=== PATIENT | female | born 2000 | race Caucasian/White ===

== ENCOUNTER → 2019-08-21 | Outpatient (CLI) | payer BC | LOC: LAB FS 11:13 | PROVIDERS: ATTEND Family Medicine | DX: Z36.87 Encounter for antenatal screening for uncertain dates (principal) | CPT/HCPCS: 36415; 84702 ==

== ENCOUNTER 2019-09-01 07:46 | Day surgery (SDC) | payer BC ==
[2019-09-01] VITALS (9 sets, daily range): BP systolic 100–118; BP diastolic 53–73
[~2019-09-01] VITALS: Ht 157.5 cm; Wt 58.1 kg
--- NOTE | 2019-09-01 08:24 | Progress Note-Pre Operative ---
Pre-Operative Progress Note H&P Reviewed The H&P was reviewed, patient examined and no changes noted. Date Seen by Provider: September 01, 2019 Time Seen by Provider: 08:23 Date H&P Reviewed: September 01, 2019 Time H&P Reviewed: 08:23 Pre-Operative Diagnosis: Missed KARTHIK LOU DO September 01, 2019 08:24
[2019-09-01] MEDS ORDERED: ONDANSETRON 4 MG/2 ML (SDV) Z0FRAN ONE (08:25)
[2019-09-01] MEDS ORDERED: SEVOFLURANE (ULTANE) 15 ML INHAL SOLN ONE (08:25)
[2019-09-01] MEDS ORDERED: DEXAMETHASONE 10 MG/ML (DECADRON) 1 ML VIAL ONE (08:25)
[2019-09-01] MEDS ORDERED: MIDAZOLAM 2 MG/2 ML (VERSED) VIAL ONE (08:25)
[2019-09-01] MEDS ORDERED: proPOfol 200 MG/20 ML (DIPRIVAN) VIAL IV ONE (08:25)
[2019-09-01] MEDS ORDERED: LIDOCAINE PF 2% 5 ML (XYLOCAINE) VIAL ONE (08:25)
[2019-09-01] MEDS ORDERED: fentaNYL INJECTION 100 MCG/2 ML AMP ONE (08:25)
[2019-09-01] MEDS ORDERED: D5 LR IV SOLUTION 1,000 ML IV SCH (08:26)
[2019-09-01] MEDS ORDERED: LACTATED RINGERS 1,000 ML IV PRN (08:27)
[2019-09-01] MEDS ORDERED: HYDR-4226 PO (08:29)
[2019-09-01] MEDS ORDERED: IBUP-1773 PO (08:29)
[2019-09-01] MEDS ORDERED: HYDROcodone/APAP 5 MG/325 MG (LORTAB) TAB PO PRN (08:30)
[2019-09-01] MEDS ORDERED: ONDANSETRON 4 MG/2 ML (SDV) Z0FRAN IVP PRN ×2 (08:30→09:30)
[2019-09-01] MEDS ORDERED: KETOROLAC 30 MG/ML VIAL IVP ONE (08:30)
--- NOTE | 2019-09-01 08:30 | Discharge Inst-Women's Service ---
Discharge Inst-Women's Serv Depart Medication/Instructions New, Converted or Re-Newed RX: RX on Chart Problems Reviewed?: Yes Consults/Follow Up Additional Follow Up: Yes Orders/Referrals Dr. Fernandez in 2-3 weeks Activity Activity: Activity as Tolerated Driving Instructions: You May Drive (do not drive for 6 hrs after taking hydrocodone) NO SMOKING: NO SMOKING Nothing Inside Vagina: No Douching, No [place], No Tampons Diet Discharge Diet: No Restrictions Symptoms to Report to : Bleeding Excessive, Pain Increased, Fever Over 101 Degrees F, Vaginal Bleeding Increase, Questions/Concerns For Any Problems or Questions: Contact Your Physician KARTHIK FERNANDEZ DO September 01, 2019 08:30
[2019-09-01 08:37] LABS: BASOPHILS % (AUTO) 1 % (0-10); EOSINOPHILS # (AUTO) 0.1 10^3/uL (0.0-0.3); EOSINOPHILS % (AUTO) 1 % (0-10); HEMATOCRIT 34 % (35-52); HEMOGLOBIN 12.1 G/DL (11.5-16.0); LYMPHOCYTES # (AUTO) 1.5 X 10^3 (1.0-4.0); LYMPHOCYTES % (AUTO) 25 % (12-44); MEAN CORPUSCULAR HEMOGLOBIN 30 PG (25-34); MEAN CORPUSCULAR HGB CONC 36 G/DL (32-36); MEAN CORPUSCULAR VOLUME 84 FL (80-99); MEAN PLATELET VOLUME 12.3 FL (7.4-10.4); MONOCYTES # (AUTO) 0.4 X 10^3 (0.0-1.0); MONOCYTES % (AUTO) 7 % (0-12); NEUTROPHILS # (AUTO) 3.8 X 10^3 (1.8-7.8); NEUTROPHILS % (AUTO) 66 % (42-75); PLATELET COUNT 185 10^3/uL (130-400); RED CELL DISTRIBUTION WIDTH 12.7 % (10.0-14.5); WHITE BLOOD COUNT 5.8 10^3/uL (4.3-11.0)
--- OUTSIDE RECORDS SUMMARY | 2019-09-01 08:44 | XMS REPORT | Continuity of Care Document ---
Author Organization Unknown Address Unknown Phone Unavailable Allergies There is no data. Medications There is no data. Problems Date Dx Coded Attending Type Code Diagnosis Diagnosed By 08/23/2019 BURT RODRIGES, STEPHANIE Brown Ot Z36.87 ENCOUNTER FOR SCREENING FOR UN Procedures There is no data. Results There is no data. Encounters ACCT No. Visit Date/Time Discharge Status Pt. Type Provider Facility Loc./Unit Complaint [id number] 08/21/2019 11:00:00 08/21/2019 23:59: 59 CLS Outpatient SELF, SHABANA Beard [facility] [id number] 08/21/2019 11:13:00 020 23:59:59 CLS Outpatient STEPHANIE DALLAS MD [facility] LAB FS UNSURE OF LAST MENSTRUA L PERIOD REASON FOR US S [id number] 09/01/2019 08:25:00 Document Registration
[2019-09-01] MEDS ORDERED: MIDAZOLAM 2 MG/2 ML (VERSED) VIAL IVP ONE (08:45)
[2019-09-01] MEDS ORDERED: morphine INJ 10 MG/ML 1ML (SYR OR VIAL) IVP ONE (09:30)
--- NOTE | 2019-09-01 10:06 | Anesthesia-General Post-Op ---
General Patient Condition Mental Status/LOC: Same as Preop Cardiovascular: Satisfactory Nausea/Vomiting: Absent Respiratory: Satisfactory Pain: Controlled Complications: Absent Post Op Complications Complications None Follow Up Care/Instructions Patient Instructions None needed. Anesthesia/Patient Condition Patient Condition Patient is doing well, no complaints, stable vital signs, no apparent adverse anesthesia problems. DEE ANAND DO September 01, 2019 10:06
--- NOTE | 2019-09-01 13:48 | OPERATIVE REPORT ---
DATE OF SERVICE: PREOPERATIVE DIAGNOSIS: A 19-year-old female with missed . POSTOPERATIVE DIAGNOSIS: A 19-year-old female with missed . PROCEDURE: Suction D and C. SURGEON: Karthik Fernandez DO ANESTHESIA: LMA general. ESTIMATED BLOOD LOSS: 300 mL. URINE OUTPUT: 150 mL clear drained at the start of the procedure. FLUIDS: 1200 mL lactated Ringer's solution. FINDINGS: A grossly normal appearing external female genitalia. Normal-appearing vagina and cervix slightly enlarged uterus approximately 8-week size. SPECIMEN SENT: Products of conception. INDICATIONS FOR PROCEDURE: This 19-year-old female is a patient that was consulted to me from Dr. Morfin in [place] for a missed AB, finding of a blighted ovum on ultrasound. Her beta-hCG levels corresponded with missed AB as well as they had been falling. They were 30,000 two days ago and recheck on showed them to be in the 20,000. I discussed with the patient this finding and the assurance that this was a nonviable . Due to the hCG falling, I discussed with her proceeding with suction D and C versus awaiting things out at home. She wishes to proceed with a more definitive procedure as she has concerns of going to the Emergency Department with bleeding and pain. Risks of the procedure was discussed with the patient in detail and after all of her questions were answered, consent was obtained in the preoperative area and the patient was taken to the operating room. OPERATIVE REPORT IN DETAIL: Once in the operating room, anesthesia was found to be adequate. She was placed in dorsal lithotomy position, prepped and draped in normal sterile fashion. Timeout was performed. A straight catheterization was performed as well. A weighted speculum inserted to the patient's vagina after a bimanual examination was performed. A right-angle retractor was used to visualize the cervix, which was grasped at 12 o'clock position using a long Allis clamp. I then gently sound the uterine cavity depth was found to be 8 cm. I selected 8 curved rigid [place] suction tip and dilated the cervix using Hegar dilators to 9 mm dilatation, at which point I advanced the suction tip with the Richmond suction device activated and a suction pressure of 75 mmHg achieved, I methodically clear the endometrium of all products of conception on several different passes using suction. I then performed a gentle curettage using a gentle small endometrial curette followed by a final pass with the suction curette, after which there was little bleeding noted from the cervix. All other instruments were removed from the patient's vagina. The patient tolerated the procedure well and was taken to recovery area in stable condition. Lap and sponge counts were correct at the end of the procedure. Instrument count was correct as well. Job ID: [id number] DocumentID: [id number] Dictated Date: 09/01/2019 09:23:30 Applications Support Lead Date: 09/01/2019 13:47:30 Dictated By: KARTHIK FERNANDEZ DO
== END 2019-09-01 10:55 | disposition home or self-care (01) ==
LOC: SDC 07:46
PROVIDERS: ATTEND Obstetrics & Gynecology
DX: O02.1 Missed abortion (principal); G43.909 Migraine, unspecified, not intractable, without status migrainosus; Z83.3 Family history of diabetes mellitus; Z82.49 Family history of ischemic heart disease and other diseases of the circulatory system
CPT/HCPCS: 36415; 85025; 86850; 86900; 86901; 87081; 87635

== ENCOUNTER 2020-03-25 14:52 | Emergency (ER) | payer BC ==
[~2020-03-25] VITALS: Ht 157.4 cm; Wt 59.0 kg
[~2020-03-25 14:52] MED LIST: HYDR-4226 PO; IBUP-1773 PO
[2020-03-25 15:07] VITALS: BP 109/76
[2020-03-25 15:21] LABS: BILIRUBIN,URINE 3+ (NEGATIVE); CLARITY,URINE TURBID; COLOR,URINE RED; GLUCOSE, URINE (UA) TRACE (NEGATIVE); KETONES,URINE 1+ (NEGATIVE); NITRITE,URINE POSITIVE (NEGATIVE); PH,URINE 7.5 (5-9); PROTEIN,URINE 3+ (NEGATIVE)
[2020-03-25 15:22] LABS: BACTERIA,URINE FEW /HPF; LEUKOCYTE ESTERASE ,URINE 3+ (NEGATIVE); RBC,URINE TNTC /HPF; RENAL EPITHELIAL CELLS,URINE 0-2 /HPF; WBC,URINE >100 /HPF
--- NOTE | 2020-03-25 15:22 | ED GU-Female ---
General Chief Complaint: - Urinary Stated Complaint: URINARY FREQUENCY Nursing Triage Note: Patient presents to the ED with c/o of urinary frequency and spasming. Patient reports that her symptoms began yesterday evening and have not subsided despite using AZO and drinking cranberry juice. Nursing Sepsis Screen: No Definite Risk History of Present Illness Date Seen by Provider: Mar 25, 2020 Time Seen by Provider: 15:21 Initial Comments Patient presenting to the emergency department for evaluation of dysuria and frequency that has been going on since yesterday and she says she has no abdominal pain fevers chills nausea vomiting back pain or other systemic symptoms. She went to the restroom approximately 4 times in the first 20 minutes of her being here. She denies any vaginal discharge. She is in no obvious distress with normal vital signs. Allergies and Home Medications Allergies Coded Allergies: No Known Drug Allergies (Unverified , 09/01/19) Home Medications Hydrocodone/Acetaminophen 1 Each Tablet, 1 TAB PO Q4-6HR Prescribed by: KARTHIK FERNANDEZ on 09/01/19828 Ibuprofen 600 Mg Tablet, 600 MG PO Q6H Prescribed by: KARTHIK FERNANDEZ on 09/01/19828 Patient Home Medication List Home Medication List Reviewed: Yes Review of Systems Review of Systems Constitutional: no symptoms reported Respiratory: no symptoms reported Cardiovascular: no symptoms reported Gastrointestinal: no symptoms reported Genitourinary: dysuria, frequency Musculoskeletal: no symptoms reported Psychiatric/Neurological: No Symptoms Reported All Other Systemes Reviewed Negative Unless Noted: Yes Past Rdoefos-Fdnicw-Hqzckv Hx Patient Social History Alcohol Use: Denies Use Recreational Drug Use: No Smoking Status: Never a Smoker 2nd Hand Smoke Exposure: No Recent Foreign Travel: No Contact w/Someone Who Travel: No Recent Infectious Disease Expo: No Recent Hopitalizations: No Physical Abuse: No Sexual Abuse: No Mistreated: No Fear: No Seasonal Allergies Seasonal Allergies: Yes Past Medical History Surgeries: Yes (D & C) Adenoidectomy, Tonsillectomy Respiratory: No Currently Using CPAP: No Currently Using BIPAP: No Cardiac: No Neurological: No Genitourinary: No Gastrointestinal: No Musculoskeletal: No Endocrine: No HEENT: No Cancer: No Psychosocial: No Integumentary: No Blood Disorders: No Physical Exam Vital Signs Vital Signs - First Documented 03/25/20 15:07 Temp 37.3 Pulse 105 Resp 16 B/P (MAP) 109/76 (87) Pulse Ox 100 O2 Delivery Room Air Capillary Refill : Less Than 3 Seconds Height, Weight, BMI Height: '" Weight: lbs. oz. kg; 23.00 BMI Method: General Appearance: WD/WN, no apparent distress Cardiovascular: regular rate, rhythm Respiratory: no respiratory distress Gastrointestinal: non tender, soft Back: no CVA tenderness Neurologic/Psychiatric: alert, oriented x 3 Skin: warm/dry Progress/Results/Core Measures Suspected Sepsis Recent Fever Within 48 Hours: No Infection Criteria Present: Suspected New Infection New/Unexplained Altered Menta: No Sepsis Screen: No Definite Risk SIRS Temperature: Pulse: 105 Respiratory Rate: 16 Blood Pressure 109 /76 Mean: 87 Results/Orders Lab Results Laboratory Tests Test 03/25/20 14:57 Range/Units Urine Color RED H Urine Clarity TURBID Urine pH 7.5 5-9 Urine Specific [place] 1.020 1.016-1.022 Urine Protein 3+ H NEGATIVE Urine Glucose (UA) TRACE H NEGATIVE Urine Ketones 1+ H NEGATIVE Urine Nitrite POSITIVE H NEGATIVE Urine Bilirubin 3+ H NEGATIVE Urine Urobilinogen >=8.0 < = 1.0 MG/DL Urine Leukocyte Esterase 3+ H NEGATIVE Urine RBC (Auto) 3+ H NEGATIVE Urine RBC TNTC H /HPF Urine WBC >100 H /HPF Urine Squamous Epithelial Cells 2-5 /HPF Urine Renal Epithelial Cells 0-2 /HPF Urine Crystals NONE /LPF Urine Bacteria FEW H /HPF Urine Casts NONE /LPF Urine Mucus NEGATIVE /LPF Urine Culture Indicated YES Urine Test NEGATIVE NEGATIVE My Orders Orders - DAWSON WALDEN DO Hcg,Qualitative Urine (03/25/20 15:11) Ua Culture If Indicated (03/25/20 15:11) Urine Culture (03/25/20 14:57) Vital Signs/I&O 03/25/20 15:07 Temp 37.3 Pulse 105 Resp 16 B/P (MAP) 109/76 (87) Pulse Ox 100 O2 Delivery Room Air Capillary Refill : Less Than 3 Seconds Blood Pressure Mean: 87 Progress Note : Progress Note Patient has classic symptoms for urinary tract infection and her urinalysis confirms that she does have a UTI. No other red flag signs or symptoms necessitating further workup or treatments I will treat her with a gram of intramuscular Rocephin here and send her home on Keflex told her to follow with primary care provider within 2-3 days for recheck and come back to the ED sooner with worsening pain fevers vomiting or other general concerns. Patient aware and agreeable with plan and verbalized understanding of the above instructions. Departure Impression Primary Impression: Urinary tract infection Qualified Codes: N39.0 - Urinary tract infection, site not specified; R31.9 - Hematuria, unspecified Disposition: 01 HOME, SELF-CARE Condition: Stable Departure-Patient Inst. Referrals: STEPHANIE DALLAS MD (PCP/Family) Primary Care Physician Patient Instructions: Urinary Tract Infection, Adult (DC) Scripts Cephalexin (Keflex) 500 Mg Capsule 500 MG PO QID for 7 Days, CAP Prov: DAWSON WALDEN DO 03/25/20 Work/School Note: Work Release Form Date Seen in the Emergency Department: Mar 25, 2020 Return to Work: Mar 27, 2020 DAWSON WALDEN DO Mar 25, 2020 15:22
[2020-03-25] MEDS ORDERED: LIDOCAINE 1% INJ 20 ML 20 ML VIAL INJ ONE (15:30)
[2020-03-25] MEDS ORDERED: cefTRIAXone 1,000 MG/2.86 ml vial (IM ONLY) IM ONE (15:30)
[2020-03-25] MEDS ORDERED: CEPH-507 PO (15:32)
== END 2020-03-25 15:52 | disposition home or self-care (01) ==
LOC: EDUNIT# 14:52 → ER FS 14:54
DX: N39.0 Urinary tract infection, site not specified (principal)
CPT/HCPCS: 81000; 84703; 87088; 99284

== ENCOUNTER → 2020-07-24 | Outpatient (CLI) | payer BC ==
[~2020-07-24] MED LIST changes: +CEPH-507 PO
[2020-07-24 10:14] LABS: HEMOGLOBIN 11.6 G/DL (11.5-16.0); MEAN PLATELET VOLUME 12.2 FL (7.4-10.4); WHITE BLOOD COUNT 7.8 10^3/uL (4.3-11.0)
== END ==
LOC: LAB FS 09:29
PROVIDERS: ATTEND Family Medicine
DX: Z34.91 Encounter for supervision of normal pregnancy, unspecified, first trimester (principal); Z3A.00 Weeks of gestation of pregnancy not specified
CPT/HCPCS: 36415; 85027; 86703; 86762; 86780; 86850; 86900; 86901; 87088; 87340

== ENCOUNTER → 2020-09-16 | Outpatient (CLI) | payer BC | LOC: LAB FS 08:47 | PROVIDERS: ATTEND Family Medicine | DX: Z34.91 Encounter for supervision of normal pregnancy, unspecified, first trimester (principal); Z3A.00 Weeks of gestation of pregnancy not specified | CPT/HCPCS: 36415; 82105; 82677; 84702; 86336 ==

== ENCOUNTER → 2020-10-24 | Outpatient (CLI) | payer BC ==
--- NOTE | 2020-10-24 09:11 | Diagnostic Imaging Report ---
INDICATION: survey TECHNIQUE: Multiple real-time grayscale images were obtained over the gravid uterus. COMPARISON: None FINDINGS: Sadler intrauterine gestation is in cephalic position. The amniotic fluid volume is unremarkable. The placenta posterior with no abruption or previa. A regular heart rate of 153 beats per minute. The nondilated cervix is a normal 4.5 cm in length and the caudal tip of the placenta separable from the os by 5.5 cm. No pathological finding at the anatomical survey is a apparent however the current lie limits adequate assessment of the ventricular outflow tracts. The biometric measurements are congruent and correlate with an average age of 23 week 1 day, estimated sonographic date of delivery 02/19/2021. The LMP percentile is 68. Biometrical measurements are as follows: Biparietal 5.71 cm, age 23 weeks 4 days. Head circumference 20.86 cm, age 23 weeks 0 days. Abdominal circumference 18.32 cm, age 23 weeks 2 days. Femur length 3.90 cm, age 22 weeks 4 days. Sonographic estimate age: 23 weeks 1 days. Sonographic estimated date of delivery: 02/19/2021. Estimated Weight: 545 gm (+/- 80 gm). LMP percentile: 68%. heart rate: 153 beats per minute. number: 1 of 1. IMPRESSION: 1. 23 week 1 day sadler viable IUP in cephalic position with no pathological finding identified. 2. No abnormality at the anatomical survey revealed but we knowledge suboptimal interrogation of the ventricular outflow tracts on a positional basis. Dictated by: Dictated on workstation # [id number]
== END ==
LOC: RAD FS 07:40
PROVIDERS: ATTEND Family Medicine
DX: Z34.92 Encounter for supervision of normal pregnancy, unspecified, second trimester (principal); Z3A.23 23 weeks gestation of pregnancy
CPT/HCPCS: 76805

== ENCOUNTER → 2020-12-02 | Outpatient (CLI) | payer BC ==
[2020-12-02 09:27] LABS: HEMATOCRIT 29 % (35-52); HEMOGLOBIN 9.7 g/dL (11.5-16.0); MEAN CORPUSCULAR HEMOGLOBIN 30 pg (25-34); MEAN CORPUSCULAR VOLUME 89 fL (80-99); WHITE BLOOD COUNT 10.1 10^3/uL (4.3-11.0)
[2020-12-02 09:28] LABS: BASOPHILS % (AUTO) 0 % (0-10); EOSINOPHILS % (AUTO) 1 % (0-10); LYMPHOCYTES % (AUTO) 14 % (12-44); MEAN CORPUSCULAR HGB CONC 34 g/dL (32-36); MEAN PLATELET VOLUME 11.9 fL (9.0-12.2); MONOCYTES % (AUTO) 6 % (0-12); NEUTROPHILS % (AUTO) 79 % (42-75); PLATELET COUNT 185 10^3/uL (130-400)
[2020-12-02 09:29] LABS: EOSINOPHILS # (AUTO) 0.1 10^3/uL (0.0-0.3); LYMPHOCYTES # (AUTO) 1.4 X 10^3 (1.0-4.0); MONOCYTES # (AUTO) 0.6 X 10^3 (0.0-1.0)
== END ==
LOC: LAB FS 08:50
PROVIDERS: ATTEND Family Medicine
DX: Z34.91 Encounter for supervision of normal pregnancy, unspecified, first trimester (principal)
CPT/HCPCS: 36415; 82950; 85025; 86592

== ENCOUNTER → 2020-12-03 | Outpatient (CLI) | payer BC | LOC: LAB FS 08:18 | PROVIDERS: ATTEND Family Medicine | DX: O24.419 Gestational diabetes mellitus in pregnancy, unspecified control (principal); Z3A.00 Weeks of gestation of pregnancy not specified | CPT/HCPCS: 36415; 82951; 82952 ==

== ENCOUNTER 2020-12-28 14:39 | Outpatient (CLI) | payer BC ==
[2020-12-28 15:04] VITALS: BP 119/68
[2020-12-28 15:21] LABS: BILIRUBIN,URINE NEGATIVE (NEGATIVE); CLARITY,URINE SL CLOUDY; COLOR,URINE YELLOW; GLUCOSE, URINE (UA) NEGATIVE (NEGATIVE); KETONES,URINE NEGATIVE (NEGATIVE); LEUKOCYTE ESTERASE ,URINE NEGATIVE (NEGATIVE); NITRITE,URINE NEGATIVE (NEGATIVE); PROTEIN,URINE NEGATIVE (NEGATIVE)
[2020-12-28 15:39] VITALS: BP 119/68
[2020-12-28 15:39] LABS: AMORPHOUS SEDIMENT,UR FEW AMOR URATES /LPF; BACTERIA,URINE NEGATIVE /HPF; SQUAMOUS EPITHELIAL CELL,UR 0-2 /HPF
[2020-12-28 16:21] LABS: BILIRUBIN,URINE NEGATIVE (NEGATIVE); CLARITY,URINE CLEAR; COLOR,URINE YELLOW; GLUCOSE, URINE (UA) NEGATIVE (NEGATIVE); KETONES,URINE NEGATIVE (NEGATIVE); LEUKOCYTE ESTERASE ,URINE NEGATIVE (NEGATIVE); NITRITE,URINE NEGATIVE (NEGATIVE); PROTEIN,URINE NEGATIVE (NEGATIVE)
[2020-12-28 16:36] LABS: BACTERIA,URINE NEGATIVE /HPF; RBC,URINE RARE /HPF; WBC,URINE RARE /HPF
[2020-12-28] MEDS ORDERED: PREN1TAB79 PO (17:18)
--- NOTE | 2020-12-30 08:24 | Physician Query-Final Dx ---
Clinic Account Progress/Dx Physician Query: Please give diagnosis Please include # weeks gestation Date of Service Dec 28, 2020 at 14:39 CHRISTINA ROCKWELL Dec 30, 2020 08:24
== END 2020-12-28 17:40 | disposition home or self-care (01) ==
LOC: WSo 14:39 → LDRP 14:40 → WSo 17:40
PROVIDERS: ATTEND Obstetrics & Gynecology
DX: O46.90 Antepartum hemorrhage, unspecified, unspecified trimester (principal); Z3A.00 Weeks of gestation of pregnancy not specified
CPT/HCPCS: 81000; G0463; 99214

== ENCOUNTER → 2021-01-06 | Outpatient (CLI) | payer BC ==
[~2021-01-06] MED LIST changes: +PREN1TAB79 PO
--- NOTE | 2021-01-07 16:37 | Diagnostic Imaging Report ---
INDICATION: Premature separation of placenta. There is a single live fetus in the cephalic presentation. heart rate was recorded at 153 bpm. Amniotic fluid index is 14.4 cm. The placenta is to the left. There appears to be homogeneous echogenicity to the placenta. There is some heterogeneity in the retroplacental location but no discrete fluid collection is seen to suggest abruption. The area of heterogeneity does show blood flow which would not be typical for abruption. No placental free edge is seen. No intra-amniotic fluid complexity is seen. IMPRESSION: While there is some heterogeneity in the retroplacental location, no definite findings to suggest placental abruption are identified. Dictated by: Dictated on workstation # [id number]
== END ==
LOC: RAD 10:50
PROVIDERS: ATTEND Family Medicine
DX: O45.8X3 Other premature separation of placenta, third trimester (principal); Z3A.00 Weeks of gestation of pregnancy not specified
CPT/HCPCS: 76815

== ENCOUNTER 2021-02-12 09:44 | Inpatient (IN) | payer BC ==
[~2021-02-12] VITALS: Ht 157 cm; Wt 76.4 kg
[2021-02-12 10:10] VITALS: BP 129/76
[2021-02-12] MEDS ORDERED: D5 LR IV SOLUTION 1,000 ML IV ONE (11:19)
[2021-02-12] MEDS ORDERED: D5 LR IV SOLUTION 1,000 ML IV SCH ×2 (12:00→14:00)
[2021-02-12 12:06] VITALS: BP 129/76
[2021-02-12 12:17] LABS: BILIRUBIN,URINE NEGATIVE (NEGATIVE); CLARITY,URINE CLEAR; COLOR,URINE YELLOW; GLUCOSE, URINE (UA) NEGATIVE (NEGATIVE); KETONES,URINE NEGATIVE (NEGATIVE); LEUKOCYTE ESTERASE ,URINE NEGATIVE (NEGATIVE); NITRITE,URINE NEGATIVE (NEGATIVE); PH,URINE 6.5 (5-9); PROTEIN,URINE NEGATIVE (NEGATIVE)
[2021-02-12 12:28] LABS: BACTERIA,URINE NEGATIVE /HPF; SQUAMOUS EPITHELIAL CELL,UR 0-2 /HPF
[2021-02-12 17:39] VITALS: BP 128/68
[2021-02-12] MEDS ORDERED: ACETAMINOPHEN 500 MG TAB (TYLENOL) PO PRN (18:30)
[2021-02-12 18:31] LABS: BASOPHILS % (AUTO) 0 % (0-10); EOSINOPHILS # (AUTO) 0.1 10^3/uL (0.0-0.3); EOSINOPHILS % (AUTO) 1 % (0-10); HEMATOCRIT 32 % (35-52); HEMOGLOBIN 10.5 g/dL (11.5-16.0); LYMPHOCYTES # (AUTO) 1.5 10^3/uL (1.0-4.0); LYMPHOCYTES % (AUTO) 13 % (12-44); MEAN CORPUSCULAR HEMOGLOBIN 28 pg (25-34); MEAN CORPUSCULAR HGB CONC 32 g/dL (32-36); MEAN CORPUSCULAR VOLUME 86 fL (80-99); MEAN PLATELET VOLUME 12.8 fL (9.0-12.2); MONOCYTES % (AUTO) 9 % (0-12); NEUTROPHILS # (AUTO) 9.1 10^3/uL (1.8-7.8); NEUTROPHILS % (AUTO) 77 % (42-75); PLATELET COUNT 206 10^3/uL (130-400); WHITE BLOOD COUNT 11.8 10^3/uL (4.3-11.0)
[2021-02-12] MEDS ORDERED: ACETAMINOPHEN 500 MG TAB (TYLENOL) ONE (18:31)
[2021-02-12] MEDS ORDERED: diphenhydrAMINE 25 MG TAB (BENADRYL) PO ONE (19:30)
[2021-02-12] MEDS: D5 LR IV SOLUTION 1,000 ML IV SCH (19:50)
[2021-02-12 19:59] VITALS: BP 133/77
[2021-02-12] MEDS ORDERED: BUTORPHANOL INJ 2 MG/ML (STADOL) VIAL ONE (21:18)
[2021-02-12] MEDS ORDERED: BUTORPHANOL INJ 2 MG/ML (STADOL) VIAL IV ONE (21:30)
[2021-02-12] MEDS ORDERED: fentaNYL 2 mcg/ml BUPIVA 0.125 100 ML ONE (23:28)
[2021-02-12] MEDS ORDERED: BUPIVACAINE 0.25% 30 ML (SENSORCAINE) VIAL ONE (23:59)
[2021-02-12] MEDS ORDERED: fentaNYL INJ 100 MCG/2 ML AMP ONE (23:59)
[2021-02-13] VITALS (55 sets, daily range): BP systolic 92–140; BP diastolic 43–82
[2021-02-13] MEDS ORDERED: ONDANSETRON 4 MG/2 ML (SDV) Z0FRAN IV PRN
[2021-02-13] MEDS ORDERED: fentaNYL INJ 100 MCG/2 ML AMP INJ ONE
[2021-02-13] MEDS ORDERED: LACTATED RINGERS 1,000 ML IV ONE ×2
[2021-02-13] MEDS: D5 LR IV SOLUTION 1,000 ML IV SCH ×4 (00:36→20:32)
[2021-02-13] MEDS: EPIDURAL (fentaNYL 2 MCG/ML BUPIVA 0.125%)100 ML BAG EPI PRN ×2 (02:37→07:41)
[2021-02-13] MEDS: CATHETER FLUSH 10 ML SYR IV SCH ×5 (06:51→22:13)
[2021-02-13] MEDS ORDERED: OXYTOCIN PRE-MIX DRIP 500 ML IV ONE (08:40)
[2021-02-13] MEDS ORDERED: LIDOCAINE/EPI 2% 1:200,00 (XYLOCAINE) 20 ML VIAL ONE (09:52)
--- NOTE | 2021-02-13 10:19 | History & Physical-OB ---
OB - Chief Complaint & HPI Date/Time Date of Admission: Date of Admission: Feb 12, 2021 at 23:32 Chief Complaint/History Hx : 2 Hx Para: 0 Expected Date of Delivery: Feb 24, 2021 Gestational Age in Weeks: 38 Gestational Age in Days: 3 Allergies and Home Medications Allergies Coded Allergies: No Known Drug Allergies (Unverified , 09/01/19) Patient Home Medication List Vit W-Ca,Fe,FA(<1 mg) ( Vitamins) 1 Each Tablet, 1 EACH PO DAILY, (Reported) Entered as Reported by: BAMBI JONES on 12/28/20 [id number] Last Action: Reviewed OB - History Hx of Present Care: Yes Obstetrical History Hx : 2 Hx Para: 0 Hx Total # of Abortions (Spona: 1 Social History/Family History Alcohol Use: Denies Use Recreational Drug Use: No 2nd Hand Smoke Exposure: No Immunizations Date of Influenza Vaccine: Jan 12, 2021 OB - Admission Exam Physical Exam Vitals: Vital Signs 02/12/21 02/12/21 02/13/21 02/13/21 12:06 19:59 00:13 06:45 Temp 36.9 Pulse 94 Resp 18 B/P (MAP) 128/66 (86) Pulse Ox 96 O2 Delivery Room Air Labs Laboratory Tests Test 02/12/21 11:00 02/12/21 11:30 Range/Units Urine Color YELLOW Urine Clarity CLEAR Urine pH 6.5 5-9 Urine Specific [place] 1.015 L 1.016-1.022 Urine Protein NEGATIVE NEGATIVE Urine Glucose (UA) NEGATIVE NEGATIVE Urine Ketones NEGATIVE NEGATIVE Urine Nitrite NEGATIVE NEGATIVE Urine Bilirubin NEGATIVE NEGATIVE Urine Urobilinogen 0.2 < = 1.0 MG/DL Urine Leukocyte Esterase NEGATIVE NEGATIVE Urine RBC (Auto) TRACE-I H NEGATIVE Urine RBC NONE /HPF Urine WBC NONE /HPF Urine Squamous Epithelial Cells 0-2 /HPF Urine Crystals NONE /LPF Urine Bacteria NEGATIVE /HPF Urine Casts NONE /LPF Urine Mucus NEGATIVE /LPF Urine Culture Indicated NO White Blood Count 11.8 H 4.3-11.0 10^3/uL Red Blood Count 3.75 L 3.80-5.11 10^6/uL Hemoglobin 10.5 L 11.5-16.0 g/dL Hematocrit 32 L 35-52 % Mean Corpuscular Volume 86 80-99 fL Mean Corpuscular Hemoglobin 28 25-34 pg Mean Corpuscular Hemoglobin Concent 32 32-36 g/dL Red Cell Distribution Width 13.3 10.0-14.5 % Platelet Count 206 130-400 10^3/uL Mean Platelet Volume 12.8 H 9.0-12.2 fL Immature Granulocyte % (Auto) 1 % Neutrophils (%) (Auto) 77 H 42-75 % Lymphocytes (%) (Auto) 13 12-44 % Monocytes (%) (Auto) 9 0-12 % Eosinophils (%) (Auto) 1 0-10 % Basophils (%) (Auto) 0 0-10 % Neutrophils # (Auto) 9.1 H 1.8-7.8 10^3/uL Lymphocytes # (Auto) 1.5 1.0-4.0 10^3/uL Monocytes # (Auto) 1.0 0.0-1.0 10^3/uL Eosinophils # (Auto) 0.1 0.0-0.3 10^3/uL Basophils # (Auto) 0.0 0.0-0.1 10^3/uL Immature Granulocyte # (Auto) 0.1 0.0-0.1 10^3/uL YOSVANY TELLES DO Feb 13, 2021 10:19
--- NOTE | 2021-02-13 10:20 | OB Labor & Delivery Record ---
Vag Delivery Note Vag Delivery Note Date of Delivery: 02/13/21 Preoperative Diagnosis: Silvana Vargas is a (20 /Para 2 / 0, Gestational Age 38 weeks in active labor Postoperative Diagnosis: Same Surgeon: YOSVANY TELLES Anesthesia: epidural Delivery Type: vaginal Findings: Viable male , apgars 8/9, weight pending Lacerations: none Intact placenta with 3 vessel cord. No nuchal cord, body cord or shoulder dystocia Estimated Blood Loss: 100 ml Complications: None Condition: Stable Description of Procedure: The patient is a 20 year old female who presented in active labor at 38 weeks. She was admitted and informed consent was obtained. Her labor course was remarkable for AROM at 8-9 cm dilation. She progressed to complete dilatation and began to push. She was then set up for delivery. The infant's head was delivered atraumatically in the OA position. The shoulders and remainder of the 's body were then delivered without difficulty. Upon delivery, the head was held below the level of the perineum and the mouth and nares were bulb suctioned. The cord was doubly clamped and cut and the infant was handed off to the pediatric staff. An intact placenta with 3-vessel cord delivered via Alber and there was found to be minimal bleeding.~ Vigorous fundal massage was performed and the fundus was found to be firm. IV oxytocin was given. Examination of the vagina and perineum revealed no laceration. Following the delivery, sponge, instrument and needle counts were correct. Mom and baby were both in stable condition in the labor suite. Vitals - Labs Vital Signs - I&O Vital Signs Date Time Temp Pulse Resp B/P (MAP) Pulse Ox O2 Delivery O2 Flow Rate FiO2 02/13/21 06:45 36.9 94 128/66 (86) 02/13/21 06:27 86 126/64 (84) 02/13/21 06:15 77 124/57 (79) 02/13/21 06:00 87 115/59 (77) 02/13/21 05:45 84 117/61 (79) 02/13/21 05:30 78 106/55 (72) 02/13/21 05:15 78 117/59 (78) 02/13/21 05:00 81 113/56 (75) 02/13/21 04:45 86 115/57 (76) 02/13/21 04:27 90 114/55 (74) 02/13/21 04:15 82 112/54 (73) 02/13/21 04:00 74 117/56 (76) 02/13/21 03:45 76 120/65 (83) 02/13/21 03:30 76 128/73 (91) 02/13/21 03:15 83 127/65 (85) 02/13/21 03:00 72 102/51 (68) 02/13/21 02:45 73 114/60 (78) 02/13/21 02:30 74 113/65 (81) 02/13/21 02:15 77 113/57 (75) 02/13/21 02:00 77 112/57 (75) 02/13/21 01:45 79 106/55 (72) 02/13/21 01:30 80 110/54 (72) 02/13/21 01:15 107 102/56 (71) 02/13/21 01:00 71 123/60 (81) 02/13/21 00:50 79 123/60 (81) 02/13/21 00:45 95 124/66 (85) 02/13/21 00:39 85 128/65 (86) 02/13/21 00:34 99 124/69 (87) 02/13/21 00:31 90 120/71 (87) 02/13/21 00:28 96 131/79 (96) 02/13/21 00:25 95 125/73 (90) 02/13/21 00:22 95 125/77 (93) 02/13/21 00:19 93 132/76 (94) 02/13/21 00:16 98 139/82 (101) 02/13/21 00:13 101 18 140/78 (98) 02/13/21 00:00 36.2 82 18 133/74 (93) 02/12/21 19:59 36.5 97 18 133/77 (95) Room Air 02/12/21 17:39 86 18 128/68 (88) Room Air 02/12/21 12:06 36.7 88 16 96 Room Air Labs Laboratory Tests 02/12/21 11:00: Urine Color YELLOW, Urine Clarity CLEAR, Urine pH 6.5, Urine Specific [place] 1.015L, Urine Protein NEGATIVE, Urine Glucose (UA) NEGATIVE, Urine Ketones NEGATIVE, Urine Nitrite NEGATIVE, Urine Bilirubin NEGATIVE, Urine Urobilinogen 0.2, Urine Leukocyte Esterase NEGATIVE, Urine RBC (Auto) TRACE-IH, Urine RBC NONE, Urine WBC NONE, Urine Squamous Epithelial Cells 0-2, Urine Crystals NONE, Urine Bacteria NEGATIVE, Urine Casts NONE, Urine Mucus NEGATIVE, Urine Culture Indicated NO 02/12/21 11:30: White Blood Count 11.8H, Red Blood Count 3.75L, Hemoglobin 10.5L, Hematocrit 32L , Mean Corpuscular Volume 86, Mean Corpuscular Hemoglobin 28, Mean Corpuscular Hemoglobin Concent 32, Red Cell Distribution Width 13.3, Platelet Count 206, Mean Platelet Volume 12.8H, Immature Granulocyte % (Auto) 1, Neutrophils (%) (Auto) 77H, Lymphocytes (%) (Auto) 13, Monocytes (%) (Auto) 9, Eosinophils (%) (Auto) 1, Basophils (%) (Auto) 0, Neutrophils # (Auto) 9.1H, Lymphocytes # (Auto) 1.5, Monocytes # (Auto) 1.0, Eosinophils # (Auto) 0.1, Basophils # (Auto) 0.0, Immature Granulocyte # (Auto) 0.1 YOSVANY TELLES DO Feb 13, 2021 10:20
[2021-02-13] MEDS ORDERED: NALOXONE 0.4 MG/ML 1 ML (NARCAN) VIAL IV PRN ×2 (10:30)
[2021-02-13] MEDS ORDERED: BENZOCAINE/MENTHOL (DERMOPLAST) 56 ML CAN TP PRN (10:30)
[2021-02-13] MEDS ORDERED: MEASLES,MUMPS,RUBELLA 1 EA INJ SQ ONE (10:30)
[2021-02-13] MEDS ORDERED: TETANUS,DIPTH,PERTUSS P/F (BOOSTRIX) 0.5 ML VIAL IM ONE (10:30)
[2021-02-13] MEDS ORDERED: WITCH HAZEL(TUCKS) 40 EA JAR TOP PRN (10:30)
[2021-02-13] MEDS: ACETAMINOPHEN 500 MG TAB (TYLENOL) PO SCH ×2 (12:47→22:13)
[2021-02-13] MEDS: IBUPROFEN 600 MG (MOTRIN) TAB PO SCH ×3 (12:47→23:48)
--- NOTE | 2021-02-13 16:17 | Anesthesia-Regional Post-Op ---
Regional Patient Condition Mental Status: Alert, Oriented x3 Circulation: Same as Pre-Op Headache: Absent Sensation: Full Recovery Motor Block: Absent Post Op Complications Complications None Follow Up Care/Instructions Patient Instructions None needed. Anesthesia/Patient Condition Patient is doing well, no complaints, stable vital signs, no apparent adverse anesthesia problems. DEE ANAND DO Feb 13, 2021 16:17
[2021-02-13] MEDS: DOCUSATE SODIUM 100 MG (COLACE) CAP PO SCH (20:18)
[2021-02-13] MEDS: OXYTOCIN PRE-MIX DRIP 500 ML IV SCH ×2 (20:25→20:29)
[2021-02-14] MEDS: ACETAMINOPHEN 500 MG TAB (TYLENOL) PO SCH ×2 (02:36→10:12)
[2021-02-14 02:51] VITALS: BP 111/62
[2021-02-14] MEDS: D5 LR IV SOLUTION 1,000 ML IV SCH ×2 (04:14→10:47)
[2021-02-14] MEDS: CATHETER FLUSH 10 ML SYR IV SCH ×2 (05:09)
[2021-02-14] MEDS: IBUPROFEN 600 MG (MOTRIN) TAB PO SCH ×2 (05:32→11:44)
[2021-02-14 05:44] VITALS: BP 115/70
[2021-02-14 05:46] LABS: BASOPHILS # (AUTO) 0.1 10^3/uL (0.0-0.1); BASOPHILS % (AUTO) 0 % (0-10); EOSINOPHILS # (AUTO) 0.2 10^3/uL (0.0-0.3); EOSINOPHILS % (AUTO) 1 % (0-10); HEMATOCRIT 31 % (35-52); HEMOGLOBIN 9.9 g/dL (11.5-16.0); LYMPHOCYTES % (AUTO) 12 % (12-44); MEAN CORPUSCULAR HEMOGLOBIN 28 pg (25-34); MEAN CORPUSCULAR HGB CONC 32 g/dL (32-36); MEAN CORPUSCULAR VOLUME 87 fL (80-99); MEAN PLATELET VOLUME 12.5 fL (9.0-12.2); MONOCYTES # (AUTO) 1.3 10^3/uL (0.0-1.0); MONOCYTES % (AUTO) 8 % (0-12); NEUTROPHILS # (AUTO) 13.8 10^3/uL (1.8-7.8); NEUTROPHILS % (AUTO) 78 % (42-75); PLATELET COUNT 189 10^3/uL (130-400); WHITE BLOOD COUNT 17.7 10^3/uL (4.3-11.0)
[2021-02-14 06:22] LABS: NEUTROPHILS % (MANUAL) 84 %
[2021-02-14 06:23] LABS: BAND NEUTROPHILS 1 %; LYMPHOCYTES % (MANUAL) 8 %; MONOCYTES % (MANUAL) 7 %; RBC MORPH NORMAL
[2021-02-14] MEDS ORDERED: PRENATAL VITAMIN 1 EA TAB PO SCH (07:00)
[2021-02-14] MEDS: DOCUSATE SODIUM 100 MG (COLACE) CAP PO SCH (08:51)
[2021-02-14] MEDS ORDERED: FERROUS SULF 325 MG (IRON) TAB PO SCH (09:00)
--- NOTE | 2021-02-14 10:09 | Postpartum Progress Note ---
Note Note Day # 2/p Subjective: Patient is without complaints. Ambulating, voiding. Tolerating a regular diet without nausea or vomiting. Normal lochia. Pain is well controlled with oral pain medications. breast feeding. Objective: 02/14/21 02/14/21 02:51 05:44 Temp 36.9 37.1 Pulse 82 77 Resp 16 16 B/P (MAP) 111/62 (78) 115/70 (85) Pulse Ox 99 99 O2 Delivery Room Air Room Air Laboratory Tests Test 02/14/21 05:35 Range/Units White Blood Count 17.7 H 4.3-11.0 10^3/uL Red Blood Count 3.59 L 3.80-5.11 10^6/uL Hemoglobin 9.9 L 11.5-16.0 g/dL Hematocrit 31 L 35-52 % Mean Corpuscular Volume 87 80-99 fL Mean Corpuscular Hemoglobin 28 25-34 pg Mean Corpuscular Hemoglobin Concent 32 32-36 g/dL Red Cell Distribution Width 13.1 10.0-14.5 % Platelet Count 189 130-400 10^3/uL Mean Platelet Volume 12.5 H 9.0-12.2 fL Immature Granulocyte % (Auto) 1 % Neutrophils (%) (Auto) 78 H 42-75 % Lymphocytes (%) (Auto) 12 12-44 % Monocytes (%) (Auto) 8 0-12 % Eosinophils (%) (Auto) 1 0-10 % Basophils (%) (Auto) 0 0-10 % Neutrophils # (Auto) 13.8 H 1.8-7.8 10^3/uL Lymphocytes # (Auto) 2.0 1.0-4.0 10^3/uL Monocytes # (Auto) 1.3 H 0.0-1.0 10^3/uL Eosinophils # (Auto) 0.2 0.0-0.3 10^3/uL Basophils # (Auto) 0.1 0.0-0.1 10^3/uL Immature Granulocyte # (Auto) 0.2 H 0.0-0.1 10^3/uL Neutrophils % (Manual) 84 % Lymphocytes % (Manual) 8 % Monocytes % (Manual) 7 % Band Neutrophils 1 % Blood Morphology Comment NORMAL Physical Exam: General - Alert and oriented, no apparent distress Abdomen - Soft, appropriately tender to palpation, non-distended, fundus firm at umbilicus Extremities - no edema, negative Erick's bilaterally Assessment: 1. post- day # 1, status post spontaneous vaginal delivery. Recovering well, hemodynamically stable 2. Acute blood loss anemia - iron given [] Plan: Routine care. Encourage breast feeding. Encourage ambulation. Ferrous sulfate supplementation. Plan for discharge Vitals - Labs Vital Signs - I&O Vital Signs Date Time Temp Pulse Resp B/P (MAP) Pulse Ox O2 Delivery O2 Flow Rate FiO2 02/14/21 05:44 37.1 77 16 115/70 (85) 99 Room Air 02/14/21 02:51 36.9 82 16 111/62 (78) 99 Room Air 02/13/21 22:05 37.0 79 16 114/62 (79) 98 Room Air 02/13/21 18:14 36.2 79 18 112/64 (80) 97 Room Air 02/13/21 11:54 96 18 119/71 (87) Room Air 02/13/21 11:39 86 18 115/65 (82) Room Air 02/13/21 11:24 83 18 112/58 (76) Room Air 02/13/21 11:09 91 18 121/65 (83) Room Air 02/13/21 10:54 103 18 120/67 (84) Room Air 02/13/21 10:39 113 18 123/78 (93) Room Air Labs Laboratory Tests 02/14/21 05:35: White Blood Count 17.7H, Red Blood Count 3.59L, Hemoglobin 9.9L, Hematocrit 31L, Mean Corpuscular Volume 87, Mean Corpuscular Hemoglobin 28, Mean Corpuscular Hemoglobin Concent 32, Red Cell Distribution Width 13.1, Platelet Count 189, Mean Platelet Volume 12.5H, Immature Granulocyte % (Auto) 1, Neutrophils (%) (Auto) 78H, Lymphocytes (%) (Auto) 12, Monocytes (%) (Auto) 8, Eosinophils (%) (Auto) 1, Basophils (%) (Auto) 0, Neutrophils # (Auto) 13.8H, Lymphocytes # (Auto) 2.0, Monocytes # (Auto) 1.3H, Eosinophils # (Auto) 0.2, Basophils # (Auto) 0.1, Immature Granulocyte # (Auto) 0.2H, Neutrophils % (Manual) 84, Lymphocytes % (Manual) 8, Monocytes % (Manual) 7, Band Neutrophils 1, Blood Morphology Comment NORMAL YOSVANY TELLES DO Feb 14, 2021 10:09
[2021-02-14 10:12] VITALS: BP 115/62
[2021-02-14] MEDS ORDERED: DOCU100C37 PO (10:12)
[2021-02-14] MEDS ORDERED: ACET-93 PO (10:12)
[2021-02-14] MEDS ORDERED: IBUP-844 PO (10:12)
[2021-02-14] MEDS ORDERED: FERR325T24 PO (10:12)
--- NOTE | 2021-02-14 10:14 | Discharge Inst-Women's Service ---
Discharge Inst-Women's Serv Depart Medication/Instructions New, Converted or Re-Newed RX: Transmitted to Pharmacy Instructions nothing in the vagina for 4-6 weeks Final Diagnosis vaginal delivery acute blood loss/iron def anemia Problems Reviewed?: Yes Consults/Follow Up Additional Follow Up: Yes (2 weeks with Cassi, 6 weeks with Navjot) Activity Activity: Activity as Tolerated Driving Instructions: You May Drive NO SMOKING: NO SMOKING Nothing Inside Vagina: No Douching, No [place], No Tampons Diet Discharge Diet: No Restrictions Symptoms to Report to : Swelling Increased, Bleeding Excessive, Pain Increased, Fever Over 101 Degrees F, Vaginal Bleeding Increase, Cramps in Feet or Legs, Vaginal Discharge Foul For Any Problems or Questions: Contact Your Physician YOSVANY TELLES DO Feb 14, 2021 10:14
== END 2021-02-14 13:15 | disposition home or self-care (01) | DRG 806 ==
LOC: WSo 09:44 → LDRP 09:44 → WSo 18:10 → LDRP 18:10 → OBSVTOIN 23:32 → LDRP 02-13 14:12
PROVIDERS: ADMIT Obstetrics & Gynecology; ATTEND Obstetrics & Gynecology
PROC: 10E0XZZ Delivery of Products of Conception, External Approach (ICD-10-PCS; principal; 2021-02-13)
DX: O90.81 Anemia of the puerperium (principal); D62 Acute posthemorrhagic anemia; Z37.0 Single live birth; Z3A.38 38 weeks gestation of pregnancy
CPT/HCPCS: 36415; 81000; 85007; 85025; 85027; 86850; 86900; 86901; 88307; 99212

== ENCOUNTER 2021-08-11 09:04 | Emergency (ER) | payer OTHER, BC ==
[~2021-08-11] VITALS: Ht 157 cm; Wt 63.0 kg
[~2021-08-11 09:04] MED LIST changes: +ACET-93 PO; +DOCU100C37 PO; +FERR325T24 PO; +IBUP-844 PO
[2021-08-11] MEDS ORDERED: METH-732 PO (10:38)
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
[2021-08-11 11:25] VITALS: BP 110/72
== END 2021-08-11 11:25 | disposition home or self-care (01) ==
LOC: EDUNIT# 09:04 → ER 09:07
DX: S06.0X0A Concussion without loss of consciousness, initial encounter (principal); S16.1XXA Strain of muscle, fascia and tendon at neck level, initial encounter; V43.52XA Car driver injured in collision with other type car in traffic accident, initial encounter
CPT/HCPCS: 70450; 72125